=== PATIENT | female | born 1945 | race African-American/Black ===

== ENCOUNTER 2018-09-27 10:28 | Outpatient (CLI) | payer MEDICARE ==
--- NOTE | 2018-09-27 11:53 | BD ---
BONE DENSITOMETRY: Date: 09/27/18 INDICATION: 72-year-old female for postmenopausal osteoporosis screening. FINDINGS: Lumbar Spine: BMD (g/cm2) L1 0.796 T-Score: -1.8 L2 0.807 T-Score: -2.0 L3 0.753 T-Score: -3.0 L4 0.775 T-Score: -2.6 L1-L4 0.782 T-Score: -2.4 Femoral Neck: 0.832 T-Score: -0.2 Total Femur: 0.979 T-Score: 0.3 IMPRESSION: 1. Bone mineral density of lumbar spine indicates osteopenia; however, the L3 and L4 levels are at t he osteoporotic range. 2. Bone mineral density of the femoral neck within normal range. POS: XUAN
--- NOTE | 2018-10-12 09:18 | MMO ---
Bilateral MAMMO Bilat Screen [facility]. CLINICAL HISTORY: Patient is 72 years old and is seen for screening. The patient has no family history of breast cancer. The patient has no personal history of cancer. VIEWS: The views performed were: bilateral craniocaudal with tomosynthesis and bilateral mediolateral oblique with tomosynthesis. FILMS COMPARED: The present examination has been compared to prior imaging studies performed at [facility] on 02/28/2007, 02/26/2009, 06/30/2010, 08/05/2011 and 03/09/2016. MAMMOGRAM FINDINGS: There are scattered fibroglandular densities. There are no suspicious masses, suspicious calcifications, or new areas of architectural distortion. IMPRESSION: THERE IS NO MAMMOGRAPHIC EVIDENCE OF MALIGNANCY. A ROUTINE FOLLOW-UP MAMMOGRAM IN 1 YEAR IS RECOMMENDED. THE RESULTS OF THIS EXAM WERE SENT TO THE PATIENT. ACR BI-RADS Category 1 - Negative MAMMOGRAPHY NOTE: 1. A negative mammogram report should not delay a biopsy if a dominant of clinically suspicious mass is present. 2. Approximately 10% to 15% of breast cancers are not detected by mammography. 3. Adenosis and dense breasts may obscure an underlying neoplasm.
== END 2018-09-27 10:29 | disposition home or self-care (01) ==
LOC: BICMAMMO 10:28
PROVIDERS: ATTEND Family Medicine
DX: Z12.31 Encounter for screening mammogram for malignant neoplasm of breast (principal); Z13.820 Encounter for screening for osteoporosis; M85.88 Other specified disorders of bone density and structure, other site
CPT/HCPCS: 77063; 77067; 77080

== ENCOUNTER 2019-04-25 07:18 | Outpatient (CLI) | payer MEDICARE ==
[2019-04-25 17:40] LABS: Hemoglobin 14.2 g/dL (12.0-16.0); Mean Corpuscular HGB CONC 33.3 g/dL (32.0-36.0); Mean Corpuscular Hemoglobin 30.5 pg (27.0-31.0); Mean Corpuscular Volume 91.7 fL (78.0-98.0); Platelet Count 243 thou/uL (130-400); RBC Distribution Width 13.1 % (11.5-14.5); Red Blood Cell (RBC) Count 4.65 mill/uL (4.20-5.40); White Blood Cell (WBC) Count 8.1 thou/uL (4.8-10.8)
[2019-04-25 18:01] LABS: ALT (SGPT) 17 U/L (8-55); AST (SGOT) 21 U/L (5-34); Albumin 4.5 g/dL (3.4-4.8); Alkaline Phosphatase 74 U/L (40-110); Anion Gap 12 mmol/L (10-20); BUN (Urea Nitrogen) 8 mg/dL (9.8-20.1); Bilirubin, Total 0.6 mg/dL (0.2-1.2); Calc. Creatinine Clearance 0 mL/min (70-130); Calcium 9.8 mg/dL (7.8-10.44); Carbon Dioxide 28 mmol/L (23-31); Chloride 104 mmol/L (98-107); Estimated GFR-MDRD 69; Globulin 2.9 g/dL (2.4-3.5); Glucose 84 mg/dL (83-110); Potassium 3.8 mmol/L (3.5-5.1); Protein, Total 7.4 g/dL (6.0-8.3); Sodium 140 mmol/L (136-145)
--- NOTE | 2019-04-25 21:58 | HP ---
ANTICIPATED DATE OF SURGERY: 04/29/2019 HISTORY OF PRESENT ILLNESS: Ms. Shafer is a 73-year-old female with history of previous hysterectomy who has been having symptoms of pelvic prolapse. She feels a bulge in her vagina and is worsened with standing. She has difficulty with voiding with urinary hesitancy due to the prolapse. She has no stress incontinence reported. She has initially been referred to me by Dr. Jessica Aguayo of Urology. PAST MEDICAL HISTORY: Significant for adult-onset diabetes, hyperlipidemia, osteoporosis, chronic hypertension. PAST SURGICAL HISTORY: Tonsillectomy, total hysterectomy for uterine fibroids, TMJ repair of a joint disk. SOCIAL HISTORY: Minimal alcohol use. Nonsmoker. and has 4 children. CURRENT MEDICATIONS: 1. Alendronate 70 mg tablet weekly. 2. Atorvastatin 20 mg tablet daily. 3. Invokana 300 mg tablet daily. 4. Januvia 100 mg tablet daily. 5. Lisinopril 20 mg tablet daily. FAMILY HISTORY: Noncontributory. PHYSICAL EXAMINATION: VITAL SIGNS: Height 5 feet 1 inch, weight 125 pounds. BMI 23.6. Blood pressure 142/84, pulse 70, respirations 18, O2 saturation on room air 99%. HEENT: Within normal limits. CHEST: Clear to auscultation. HEART: Regular rate and rhythm. S1, S2 heart sounds. No murmurs, rubs, or gallops. ABDOMEN: Soft, nontender, nondistended with no palpable masses. PELVIC: Vulva and vagina had no lesions. Bladder, urethra, no lesions. Vagina showed midline grade 2 cystocele and grade 3 rectocele. Upper vaginal vault appeared adequately supported. Cervix and uterus were surgically absent. Adnexa nontender with no masses. ASSESSMENT: This is a 73-year-old female with prior hysterectomy with grade 2 cystocele and grade 3 rectocele. PLAN: Plan is to proceed with anterior and posterior repair on 04/29/2019. Risks and benefits of procedure have been discussed in detail. She is set for surgery. Job ID: [id number]
== END 2019-04-25 07:19 | disposition home or self-care (01) ==
LOC: LABBT 07:18
PROVIDERS: ATTEND Obstetrics & Gynecology
DX: Z01.812 Encounter for preprocedural laboratory examination (principal); N81.10 Cystocele, unspecified; N81.6 Rectocele
CPT/HCPCS: 80053; 85027; 93005; 93010

== ENCOUNTER 2019-04-25 16:00 | Inpatient (IN) | payer MEDICARE ==
[2019-04-25 17:16] VITALS: BMI 22.9
[2019-04-29] MEDS ORDERED: Lidocaine 1% w/Epinephrine 1:100K 20 ML VIAL ONE (12:31)
[2019-04-29] MEDS ORDERED: Fentanyl 100 MCG/2 ML VIAL ONE (12:35)
[2019-04-29] MEDS ORDERED: traMADol HCl 50 MG TAB PO PRN ×2 (14:11)
[2019-04-29] MEDS ORDERED: Insulin Regular 300 UNITS/3 ML VIAL SC PRN (14:11)
[2019-04-29] MEDS ORDERED: Bisacodyl 10 MG SUPP PR PRN (14:11)
[2019-04-29] MEDS ORDERED: diphenhydrAMINE 25 MG CAP PO PRN (14:11)
[2019-04-29] MEDS ORDERED: Zolpidem Tartrate 5 MG TAB PO PRN (14:11)
[2019-04-29] MEDS ORDERED: Ondansetron PF 4 MG/2 ML Vial IVP PRN (14:11)
[2019-04-29] MEDS ORDERED: Morphine 2 MG/ML SYRINGE SLOW IVP PRN (14:11)
[2019-04-29] MEDS ORDERED: Dextrose 50% Abboject 50 ML SYRINGE SLOW IVP PRN (14:11)
[2019-04-29] MEDS ORDERED: Dextrose 5% in Water 1,000 ML IV PRN (14:11)
[2019-04-29] MEDS ORDERED: Promethazine HCl 25 MG/ML VIAL IM PRN (14:11)
[2019-04-29] MEDS ORDERED: Simethicone Chewable 80 MG TAB PO PRN (14:11)
[2019-04-29] MEDS ORDERED: [UNRECOGNIZED DRUG - OTHER] TOP PRN (14:16)
[2019-04-29] MEDS ORDERED: Lactated Ringer's 1,000 ML IV SCH ×2 (17:45)
[2019-04-29] MEDS: Ketorolac Tromethamine 30 MG/ML VIAL IVP SCH (17:56)
[2019-04-29] MEDS: Acetaminophen 1,000 MG in Premix Bag 1 BAG IVPB SCH (17:57)
--- NOTE | 2019-04-29 19:56 | OP ---
DATE OF PROCEDURE: 04/29/2019 PREOPERATIVE DIAGNOSIS: A 73-year-old -Thai female, prior hysterectomy with symptomatic grade 2 cystocele and grade 3 rectocele. POSTOPERATIVE DIAGNOSIS: A 73-year-old -Thai female, prior hysterectomy with symptomatic grade 2 cystocele and grade 3 rectocele. PROCEDURE PERFORMED: Anterior and posterior repair. [employer] CONSULTANT: RIP Williamson ANESTHESIA: General endotracheal. ESTIMATED BLOOD LOSS: 25 mL. COMPLICATIONS: None. COUNTS: Correct x2. PATHOLOGY: None. DISPOSITION: Recovery room, stable. DESCRIPTION OF PROCEDURE: The patient previously received informed consent in regard to surgery. She was taken back to the operating room, where she received a general endotracheal anesthetic agent without complications. She was placed in the dorsal lithotomy position with use of Sander stirrups and then prepped and draped in usual sterile fascial. Dinh catheter was placed at this time. A weighted speculum was placed in the vagina and the anterior edges of the vaginal cuff were grasped with 2 Allis clamps. The anterior vaginal mucosa was infiltrated with approximately 10 mL of 1% lidocaine with epinephrine. A midline vertical mucosal incision in anterior mucosa was made with Metzenbaum scissors. This was carried up about 1.5 cm from the urethral meatus. The edges of the vaginal mucosa were grasped with Allis clamps and retracted backside for exposure by my assistants. The cystocele was then dissected both bluntly and sharply reducing the cystocele in its entirety. Once this was accomplished, the endopelvic fascia was replicated in the midline with 2-0 Vicryl sutures in [id number] stitch fashion. This first started cephalad and then worked towards the introitus reducing the cystocele. The anterior vaginal mucosa was then closed incorporating some of the endopelvic fascia to rid the space with 2-0 Vicryl suture in [id number]-[id number] stitch fashion securing hemostasis. Attention was then turned to the posterior repair. The weighted speculum had been removed. The vaginal introitus mucosa was grasped at the 4 and 8 o'clock position with Allis clamps. The posterior vaginal mucosa was infiltrated with 1% lidocaine with epinephrine up to the vaginal cuff line. The midline incision was again made of the vaginal mucosa up towards the cuff line with Metzenbaum scissors. The rectocele was dissected both sharply and bluntly and the edges of the mucosa were cut towards the vaginal cuff. The edges were grasped with Allis clamps for counter traction by my assistance and the rectocele was reduced. We then placed a stay suture in the upper apex of the vaginal mucosa with 2-0 Vicryl. Then, the endopelvic fascia starting again cephalad was plicated with [id number] sutures of 2-0 Vicryl suture replicating the endopelvic fascia in the midline. This was carried out towards the opening of the introitus until this complete rectocele was reduced. The excess vaginal mucosa was somewhat trimmed and then the posterior vaginal mucosa was closed with interrupted ibwlvt-pz-hagzt stitches with 2-0 Vicryl incorporating the endopelvic fascia reducing the space. The vaginal vault was then packed with a moistened Kerlix and trimmed. The patient was then awakened from anesthesia and transferred to recovery room in stable condition. Job ID: [id number]
[2019-04-29] MEDS ORDERED: Atorvastatin Calcium 20 MG TAB PO SCH (21:00)
[2019-04-30] MEDS: Acetaminophen 1,000 MG in Premix Bag 1 BAG IVPB SCH ×3 (00:31→12:15)
[2019-04-30] MEDS: Ketorolac Tromethamine 30 MG/ML VIAL IVP SCH (00:32)
[2019-04-30 02:37] VITALS: TEMP 98
[2019-04-30 05:59] LABS: Mean Corpuscular HGB CONC 31.3 g/dL (32.0-36.0); Mean Corpuscular Hemoglobin 28.6 pg (27.0-31.0); Mean Corpuscular Volume 91.4 fL (78.0-98.0); Platelet Count 216 thou/uL (130-400); RBC Distribution Width 12.9 % (11.5-14.5); Red Blood Cell (RBC) Count 4.21 mill/uL (4.20-5.40); White Blood Cell (WBC) Count 12.2 thou/uL (4.8-10.8)
[2019-04-30] MEDS: Ibuprofen 800 MG TAB PO SCH ×2 (06:05→14:11)
[2019-04-30] MEDS ORDERED: Lisinopril 20 MG TAB PO SCH (09:00)
[2019-04-30] MEDS ORDERED: Alogliptin 25 MG TAB PO SCH (09:00)
[2019-04-30] MEDS ORDERED: Non-Formulary Item 1 EACH (Canagliflozin [Invokana] 1 TAB) PO SCH (09:00)
[2019-04-30 11:56] VITALS: BP 136/68
--- NOTE | 2019-04-30 16:02 | PDOC.EVN ---
Event Note - Event Note Event Note: Tolerating diet. Ambulating . Voiding well. PVR's < 100 ml the past few. good pain control on tylenol. Vitals are stable and normal. A/P Post op day 1 from A&P repair doing. well. D/c home. F/u in 4 weeks.
--- NOTE | 2019-04-30 16:23 | DIS ---
DATE OF ADMISSION: 04/29/2019 DATE OF DISCHARGE: 04/30/2019 DIAGNOSIS: Grade 2 cystocele, grade 3 rectocele. PROCEDURE PERFORMED: Anterior and posterior repair. COMORBID DIAGNOSES: Adult-onset diabetes and hypertension. SUMMARY OF HOSPITAL COURSE: Ms. Shafer is a 73-year-old female with prior hysterectomy, who was having symptomatic pelvic organ prolapse with cystocele and rectocele. She had issues with inability to completely void and empty her bladder. She underwent anterior and posterior repair on 04/29/2019. Postoperatively, the patient has done well. Vital signs remained stable. She is ambulating and voiding. Trials were initiated. On postop day #1, she had resolution of any retained urinary retention with postvoid residuals less than 100 mL x2. Voids were over 300 to 500 at time. She was discharged home on the afternoon of postop day #1 and has a followup in 4 weeks. Job ID: [id number]
[2019-05-06] MEDS ORDERED: Alendronate Sodium 70 mg Tablet PO SCH (09:00)
== END 2019-04-30 15:22 | disposition home or self-care (01) | DRG 748 ==
LOC: SURG A 04-29 10:51 → 3SW 04-29 16:31
PROVIDERS: ADMIT Obstetrics & Gynecology; ATTEND Obstetrics & Gynecology
PROC: 0JQC0ZZ Repair Pelvic Region Subcutaneous Tissue and Fascia, Open Approach (ICD-10-PCS; principal; 2019-04-29)
PROC: 0JQC0ZZ Repair Pelvic Region Subcutaneous Tissue and Fascia, Open Approach (ICD-10-PCS; 2019-04-29)
DX: N81.3 Complete uterovaginal prolapse (principal); E11.9 Type 2 diabetes mellitus without complications; I10 Essential (primary) hypertension; R33.9 Retention of urine, unspecified; Z90.710 Acquired absence of both cervix and uterus
CPT/HCPCS: 36415; 36416; 85027; 86850; 86900; 86901; J0131; J0690; J1885; J3010

== ENCOUNTER 2019-11-12 12:20 | Outpatient (CLI) | payer MEDICARE ==
--- NOTE | 2019-11-12 12:50 | MMO ---
Bilateral MAMMO Bilat Screen [facility]. CLINICAL HISTORY: Patient is 74 years old and is seen for screening. The patient has no family history of breast cancer. The patient has no personal history of cancer. VIEWS: The views performed were: bilateral craniocaudal with tomosynthesis and bilateral mediolateral oblique with tomosynthesis. FILMS COMPARED: The present examination has been compared to prior imaging studies performed at [facility] on 06/30/2010, 08/05/2011 and 03/09/2016, and at [facility] on 09/27/2018. This study has been interpreted with the assistance of computer-aided detection. MAMMOGRAM FINDINGS: There are scattered fibroglandular densities. There are no suspicious masses, suspicious calcifications, or new areas of architectural distortion. IMPRESSION: THERE IS NO MAMMOGRAPHIC EVIDENCE OF MALIGNANCY. A ROUTINE FOLLOW-UP MAMMOGRAM IN 1 YEAR IS RECOMMENDED. THE RESULTS OF THIS EXAM WERE SENT TO THE PATIENT. ACR BI-RADS Category 1 - Negative MAMMOGRAPHY NOTE: 1. A negative mammogram report should not delay a biopsy if a dominant of clinically suspicious mass is present. 2. Approximately 10% to 15% of breast cancers are not detected by mammography. 3. Adenosis and dense breasts may obscure an underlying neoplasm. Reported by: DIPAK BOWLES MD Electonically Signed: [id number]
== END 2019-11-12 12:21 | disposition home or self-care (01) ==
LOC: BICMAMMO 12:20
PROVIDERS: ATTEND Family Medicine
DX: Z12.31 Encounter for screening mammogram for malignant neoplasm of breast (principal)
CPT/HCPCS: 77063; 77067

== ENCOUNTER 2021-05-26 08:31 | Outpatient (CLI) | payer MEDICARE | END 2021-05-26 08:32 | disposition home or self-care (01) | LOC: BICRAD 08:31 | PROVIDERS: ATTEND Internal Medicine Rheumatology | DX: M81.0 Age-related osteoporosis without current pathological fracture (principal) | CPT/HCPCS: 72072 ==

== ENCOUNTER 2023-03-01 11:56 | Outpatient (CLI) | payer MEDICARE | END 2023-03-01 11:57 | disposition home or self-care (01) | LOC: BICMAMMO 11:56 | PROVIDERS: ATTEND Internal Medicine Rheumatology | DX: M81.0 Age-related osteoporosis without current pathological fracture (principal); M85.88 Other specified disorders of bone density and structure, other site | CPT/HCPCS: 77080 ==

== ENCOUNTER 2024-02-21 12:39 | Outpatient (CLI) | payer MEDICARE | END 2024-02-21 12:40 | disposition home or self-care (01) | LOC: BICMAMMO 12:39 | PROVIDERS: ATTEND Family Medicine | DX: Z12.31 Encounter for screening mammogram for malignant neoplasm of breast (principal) | CPT/HCPCS: 77063; 77067 ==

== ENCOUNTER 2025-03-18 14:46 | Outpatient (CLI) | payer MEDICARE | END 2025-03-18 14:47 | disposition home or self-care (01) | LOC: BICMAMMO 14:46 | PROVIDERS: ATTEND Family Medicine | DX: Z12.31 Encounter for screening mammogram for malignant neoplasm of breast (principal) | CPT/HCPCS: 77063; 77067 ==

== ENCOUNTER 2025-04-07 20:22 | Observation (INO) | payer MEDICARE ==
[2025-04-07] MEDS ORDERED: hydrALAZINE 20 MG/ML VIAL SLOW IVP PRN (21:00)
[2025-04-08] MEDS: FLU (Fluad Triv) 25-26 (65UP)PF 45 MCG/0.5 ML Syringe IM ONE (02:21)
[2025-04-08 03:27] LABS: #Basophils 0.03 10x3/uL (0.0-0.2); #Eosinophils 0.18 10x3/uL (0.0-0.7); #Monocytes 0.69 10x3/uL (0.11-0.59); #Neutrophils 5.95 10x3/uL (1.40-6.50); %Basophils 0.3 % (0.0-1.0); %Eosinophils 1.9 % (0.0-10.0); %Lymphocytes 26.0 % (21.0-51.0); %Monocytes 7.4 % (0.0-10.0); %Neutrophils 64.2 % (42.0-75.0); Hematocrit 40.5 % (36.0-47.0); Hemoglobin 13.1 g/dL (12.0-16.0); Mean Corpuscular Hemoglobin 29.0 pg (27.0-31.0); Mean Corpuscular Volume 89.8 fL (78.0-98.0); Platelet Count 249 10x3/uL (130-400); Red Blood Cell (RBC) Count 4.51 mill/uL (4.20-5.40); White Blood Cell (WBC) Count 9.29 10x3/uL (4.8-10.8)
[2025-04-08 03:53] LABS: ALT (SGPT) 14 U/L (Less than 34); AST (SGOT) 28 U/L (11-34); Albumin 3.9 g/dL (3.1-4.5); Alkaline Phosphatase 71 U/L (40-110); Anion Gap 12 mmol/L (10-20); BUN (Urea Nitrogen) 8 mg/dL (9.8-20.1); Bilirubin, Total 0.4 mg/dL (0.3-1.2); Calc. Creatinine Clearance 0 mL/min (70-130); Calcium 9.3 mg/dL (7.8-10.44); Carbon Dioxide 28 mmol/L (23-31); Chloride 104 mmol/L (98-107); Globulin 2.9 g/dL (2.4-3.5); Glucose 105 mg/dL (83-110); Potassium 4.1 mmol/L (3.5-5.1); Sodium 140 mmol/L (136-145)
[2025-04-08] MEDS: Enoxaparin 40 MG (0.4 mL) SYRINGE SC SCH (08:58)
[2025-04-08 14:49] VITALS: TEMP 98.3; BMI 19.8
[2025-04-08 16:28] VITALS: BP 141/72
== END 2025-04-08 04:35 | disposition home or self-care (01) ==
LOC: 2SE 20:22 → UNDOADMOB 20:22 → UNDODISOB 04-08 04:35
PROVIDERS: ADMIT Family Medicine; ATTEND Family Medicine
PROC: B24BZZZ Ultrasonography of Heart with Aorta (ICD-10-PCS; principal; 2025-04-08)
DX: R29.818 Other symptoms and signs involving the nervous system (principal); R53.1 Weakness; I10 Essential (primary) hypertension; E11.9 Type 2 diabetes mellitus without complications; E78.5 Hyperlipidemia, unspecified; Z90.710 Acquired absence of both cervix and uterus; Z90.89 Acquired absence of other organs; Z79.85 Long-term (current) use of injectable non-insulin antidiabetic drugs; Z79.84 Long term (current) use of oral hypoglycemic drugs; Z79.899 Other long term (current) drug therapy
CPT/HCPCS: 70551; 80053; 82962; 85025; 93306; 96372; G0378 ×2; J1650; 36415; 36416